=== PATIENT | female | born 1980 | race Two or more races ===

== ENCOUNTER 2019-07-12 12:23 | Emergency (ER) | payer SELFPAY ==
[~2019-07-12] VITALS: Ht 160 cm; Wt 120.2 kg
--- NOTE | 2019-07-12 12:58 | PHYS DOC ---
Text Text Patient placed in wrist splint for comfort and support. Recommend supportive care with PCP follow-up as needed. General Chief Complaint: WRIST PAIN Stated Complaint: WRIST INJURY Time Seen by MD: 12:33 Source: patient History of Present Illness Onset: last week Pain/Injury Location: left wrist Method of Injury: fell, other (outstretched hand) Modifying Factors: improves with pain medication Allergies: Coded Allergies: No Known Drug Allergies (Unverified , 07/12/19) Past Medical History Medical History: no pertinent history Surgical History: no surgical history Review of Systems Musculoskeletal: joint swelling Physical Exam General Appearance: WD/WN HEENT: PERRL/EOMI Neck: non-tender Gastrointestinal: non-tender Back: normal inspection Shoulder: normal inspection Elbow/Forearm: normal inspection Wrist: pain, soft tissue tenderness Hand: normal inspection, non-tender Neurologic/Tendon: normal sensation Psychiatric: alert, oriented x 3 Orders, Labs, Meds Left wrist x-ray: No obvious displaced fracture on preliminary ED review EDEL PALENCIA DO Jul 12, 2019 12:58
--- NOTE | 2019-07-12 13:09 | RAD ---
WRIST 3V LEFT History: Trauma. Pain. Technique: 4 views left wrist. Comparison: None. Findings: Normal alignment. No fracture. Soft tissues unremarkable. Impression: 1. No acute osseous abnormality. Electronically signed by: Carlos Ferreira DO (07/12/2019 1:06 PM) [id number]
[2019-07-12 13:11] VITALS: BP 148/79
== END 2019-07-12 13:05 | disposition home or self-care (01) ==
LOC: ER 12:23
DX: S69.92XA Unspecified injury of left wrist, hand and finger(s), initial encounter (principal); W18.39XA Other fall on same level, initial encounter; Y93.89 Activity, other specified; Y92.89 Other specified places as the place of occurrence of the external cause; Y99.8 Other external cause status
CPT/HCPCS: 29125; 73110; 99284

== ENCOUNTER 2020-07-25 14:54 | Emergency (ER) | payer SELFPAY ==
[~2020-07-25] VITALS: Ht 160 cm; Wt 127.2 kg
[2020-07-25] MEDS: DEXAMETHASONE 4 MG TABLET PO ONE (15:15)
--- NOTE | 2020-07-25 15:44 | RAD ---
EXAMINATION: CHEST AP ONLY CLINICAL HISTORY: cough, SOA, covid + EXAM DATE/TIME: 07/25/2020 3:05 PM COMPARISON: None FINDINGS: Lines, Tubes, and Devices: None. Cardiomediastinal Silhouette: Within normal limits. Lungs and Pleura: Pulmonary hypoexpansion without evidence of focal airspace consolidation or pleural effusion. Pulmonary vasculature unremarkable. Bones and Soft Tissues: No acute osseous abnormality. IMPRESSION: Pulmonary hypoexpansion without evidence of acute cardiopulmonary abnormality. Electronically signed by: Shay Alvarenga DO (07/25/2020 3:41 PM) [id number]
[2020-07-25 16:57] VITALS: BP 155/90
--- NOTE | 2020-07-25 16:57 | PHYS DOC ---
Past History Past Medical History: No Pertinent History Past Surgical History: Cholecystectomy Alcohol Use: None Drug Use: None General Adult EDM: Chief Complaint: COUGH HPI: HPI: Patient is a [age] year old [sex] who presents with [] Review of Systems: Review of Systems: Constitutional: Denies fever or chills Eyes: Denies change in visual acuity HENT: Denies nasal congestion or sore throat Respiratory: Denies cough or shortness of breath Cardiovascular: Denies chest pain or edema GI: Denies abdominal pain, nausea, vomiting, bloody stools or diarrhea : Denies dysuria Musculoskeletal: Denies back pain or joint pain Integument: Denies rash Neurologic: Denies headache, focal weakness or sensory changes Endocrine: Denies polyuria or polydipsia Lymphatic: Denies swollen glands Psychiatric: Denies depression or anxiety Heart Score: Risk Factors: Risk Factors: DM, Current or recent (<one month) smoker, HTN, HLP, family history of CAD, obesity. Risk Scores: Score 0 - 3: 2.5% MACE over next 6 weeks - Discharge Home Score 4 - 6: 20.3% MACE over next 6 weeks - Admit for Clinical Observation Score 7 - 10: 72.7% MACE over next 6 weeks - Early Invasive Strategies Current Medications: Current Meds: Current Medications Medications (Trade) Dose Ordered Sig/Veronica Start Time Stop Time Status Last Admin Dose Admin Dexamethasone (Decadron) 10 mg 1X ONCE 07/25/20 15:15 07/25/20 15:20 DC 07/25/20 15:15 10 MG Allergies: Allergies: Allergies Coded Allergies Type Severity Reaction Last Updated Verified No Known Drug Allergies 07/12/19 No Physical Exam: PE: Constitutional: Well developed, well nourished, no acute distress, non-toxic appearance. [] HENT: Normocephalic, atraumatic, bilateral external ears normal, oropharynx moist, no oral exudates, nose normal. [] Eyes: PERRLA, EOMI, conjunctiva normal, no discharge. [] Neck: Normal range of motion, no tenderness, supple, no stridor. [] Cardiovascular:Heart rate regular rhythm, no murmur [] Lungs & Thorax: Bilateral breath sounds clear to auscultation [] Abdomen: Bowel sounds normal, soft, no tenderness, no masses, no pulsatile masses. [] Skin: Warm, dry, no erythema, no rash. [] Back: No tenderness, no CVA tenderness. [] Extremities: No tenderness, no cyanosis, no clubbing, ROM intact, no edema. [] Neurologic: Alert and oriented X 3, normal motor function, normal sensory function, no focal deficits noted. [] Psychologic: Affect normal, judgement normal, mood normal. [] Current Patient Data: Vital Signs: Vital Signs Date Time Temp Pulse Resp B/P (MAP) Pulse Ox O2 Delivery O2 Flow Rate FiO2 07/25/20 15:17 98.1 77 16 159/92 (114) 97 Room Air EKG: EKG: [] Radiology/Procedures: Radiology/Procedures: PROCEDURE: CHEST AP ONLY EXAMINATION: CHEST AP ONLY CLINICAL HISTORY: cough, SOA, covid + EXAM DATE/TIME: 07/25/2020 3:05 PM COMPARISON: None FINDINGS: Lines, Tubes, and Devices: None. Cardiomediastinal Silhouette: Within normal limits. Lungs and Pleura: Pulmonary hypoexpansion without evidence of focal airspace consolidation or pleural effusion. Pulmonary vasculature unremarkable. Bones and Soft Tissues: No acute osseous abnormality. IMPRESSION: Pulmonary hypoexpansion without evidence of acute cardiopulmonary abnormality. Electronically signed by: Shay Alvarenga DO (07/25/2020 3:41 PM) [id number] Course & Med Decision Making: Course & Med Decision Making Pertinent Labs and Imaging studies reviewed. (See chart for details) [] Dragon Disclaimer: Dragon Disclaimer: This electronic medical record was generated, in whole or in part, using a voice recognition dictation system. Departure Departure: Impression: Primary Impression: COVID-19 Disposition: 01 HOME/RESIDENCE PRIOR TO ADM Condition: STABLE Referrals: PCP,NO (PCP) Patient Instructions: Incentive Spirometer, Viral Syndrome Additional Instructions: You have been tested for or diagnosed with COVID-19. It is an infection caused by a new type of coronavirus. COVID-19 will cause cold-like or mild flu symptoms in most. It can cause more severe symptoms like problems breathing in some. There is no treatment for COVID-19. The body will clear the infection over time. Self-care will help to ease discomfort. Steps to Take: Self-Care Rest as needed. Healthy habits may help you feel better. Steps include: Choose healthy foods including fruits and vegetables. Drink water throughout the day. Get plenty of sleep each night. If you smoke, try to quit. It may ease breathing. Avoid alcohol. Keep Others Healthy The virus can spread to others. Droplets are released every time you sneeze or cough. The droplets can get into the mouth, nose, or eyes of people near you and lead to infection. To lower the chances of spreading COVID-19 to others: Stay at home until your doctor has said it is safe to leave. If you tested positive this will mean staying isolated until both of the following are true: At least 7 days have passed since the start of illness. You are free of fever for at least 72 hours without the use of medicine. During this time: - Avoid public areas, events, or transportation. Do not return to work or school until your doctor has said it is safe to do so. - Call ahead if you need to go to a medical center. Let them know you may have COVID-19. It will help them guide you where to go. They may also ask you to wear a facemask when you come to the office. - If you call for emergency medical services, let them know you may have COVID- 19. While at home: - Try to avoid close contact with others. Stay about 6 feet away. - If possible, spend most of your time in a separate room from others. - Use a face mask if you will be in close contact with others such as sharing a room or vehicle. - Have someone wipe down common surfaces in the home. Use household [employer] every day on areas like doorknobs, counters, or sinks. - Cough or sneeze into a tissue. Throw the tissue away right after use. If a tissue is not available, cough or sneeze into your elbow. - Wash your hands often. Wash them after sneezing or coughing. Use soap and [place] and wash for at least 20 seconds. Alcohol based hand poultry cleaner can be used if soap and water is not available. - Do not prepare food for others. Avoid sharing personal items like forks, spoons, or toothbrushes. - Avoid close contact with pets while you are sick. There is no evidence of the virus passing to pets. This is a safety step until more is known about this virus. Isolation can be frustrating. Social interaction can help. Keep in touch with friends and family through phone and tech options. You can still interact with others in your home, just keep a safe distance of about 6 feet. Follow-up: Your doctors office will check in with you to see if there are any changes in your health. You may be asked to keep track of symptoms to share with them. They will also let you know when you are clear to be in public again. Problems to Look Out For: Contact your doctor if your recovery is not going as you expect. Get emergency care if you have problems such as: - Trouble breathing - Nonstop chest pain or pressure - Changes in awareness, confusion, or problems waking - Lips or face have bluish color - Worsening of symptoms If you think you have an emergency, call for emergency medical services right away. As taken from [facility] Justification of Admission: Justification of Admission: Justification of Admission Dx: N/A BELINDA FIGUEROA DO Jul 25, 2020 16:57
== END 2020-07-25 17:30 | disposition home or self-care (01) ==
LOC: ER 14:54
DX: U07.1 COVID-19 (principal)
CPT/HCPCS: 71045; 99283; J8540

== ENCOUNTER 2021-08-30 16:38 | Emergency (ER) | payer OTHER ==
[~2021-08-30] VITALS: Ht 160 cm; Wt 137.0 kg
--- NOTE | 2021-08-30 16:54 | PHYS DOC ---
Past History Past Medical History: No Pertinent History (NABIL BUCKLEY APRN) Past Surgical History: Cholecystectomy (NABIL BUCKLEY APRN) Smoking: Non-smoker Alcohol Use: None Drug Use: None (NABIL BUCKLEY APRN) General Adult EDM: Chief Complaint: ABDOMINAL PAIN HPI: HPI: Patient is a 41-year-old female who presents to the emergency department today for suprapubic abdominal cramping that radiates to her left flank that started 1 hour ago. Patient rates her pain 10 out of 10. She is taking ibuprofen without any relief. Patient denies nausea, vomiting, diarrhea, fevers, dysuria, hematuria, urinary frequency/urgency, lightheadedness. (NABIL BUCKLEY APRN) Review of Systems: Review of Systems: 14 body systems of the review of systems have been reviewed. See HPI for pertinent positive and negative responses, otherwise all other systems are negative, nonpertinent or noncontributory (NABIL BUCKLEY APRN) Allergies: Allergies: Allergies Coded Allergies Type Severity Reaction Last Updated Verified No Known Drug Allergies 08/30/21 No (NABIL BUCKLEY APRN) Physical Exam: PE: Constitutional: Well developed, well nourished, no acute distress, non-toxic appearance. [] HENT: Normocephalic, atraumatic, bilateral external ears normal, oropharynx moist, no oral exudates, nose normal. [] Eyes: PERRL, EOMI, conjunctiva normal, no discharge. [] Neck: Normal range of motion, no tenderness, supple, no stridor. [] Cardiovascular:Heart rate regular rhythm, no murmur [] Lungs & Thorax: Bilateral breath sounds clear to auscultation [] Abdomen: Bowel sounds normal, soft, suprapubic and right lower quadrant tenderness with palpation, no masses, no pulsatile masses. [] Skin: Warm, dry, no erythema, no rash. [] Back: No tenderness, no CVA tenderness. [] Extremities: No tenderness, no cyanosis, no clubbing, ROM intact, no edema. [] Neurologic: Alert and oriented X 3, normal motor function, normal sensory function, no focal deficits noted. [] Psychologic: Affect normal, judgement normal, mood normal. [] (NABIL BUCKLEY APRN) EKG: EKG: [] (NABIL BUCKLEY APRN) Radiology/Procedures: Radiology/Procedures: []PROCEDURE: US PELVIS W/TV EXAM: Transvaginal pelvic ultrasound INDICATION: Uterine enlargement, mass or recent CT abdomen and pelvis. COMPARISON: CT abdomen and pelvis August 30, 2021 TECHNIQUE: Transabdominal and transvaginal transducers were grayscale and duplex Doppler sonography was performed. FINDINGS: Transabdominal pelvic sonography demonstrates limited visualization of uterus and ovaries. Transvaginal imaging demonstrates mild retroflexion of the uterus, uterus measures 9.5 x 6.0 x 5.0 cm. Endometrium thickness 0.8 cm, endometrium is somewhat indistinctly defined. Along the posterior uterine wall of the fundus there is a myometrial heterogeneous echogenicity mildly shadowing mass measuring 2.4 x 2.1 x 2.5 cm. Mild hypoechoic complex mobile fluid of the cul-de-sac and at the right adnexa. The ovaries could not be visualized due to shadowing from pelvic bowel loops. IMPRESSION: 1. Posterior uterine wall 2.5 cm mass typical of a leiomyoma, which combined with mild retroflexion of the uterus, likely account for the globular enla rgement morphology of the uterus on recent CT imaging. 2. Mild hypoechoic complex fluid at the cul-de-sac and right adnexa, this could represent a small volume of viscous proteinaceous or hemorrhagic fluid. The ovaries could not be visualized. Electronically signed by: Gian Harding MD (08/30/2021 6:29 PM) [facility] DICTATED AND SIGNED BY: GIAN HARDING MD DATE: 08/30/21 182 CC: NABIL BUCKLEY APRN; PCP,NO ~MTH0 0 (NABIL BUCKLEY APRN) Heart Score: C/O Chest Pain: N/A Risk Factors: Risk Factors: DM, Current or recent (<one month) smoker, HTN, HLP, family history of CAD, obesity. Risk Scores: Score 0 - 3: 2.5% MACE over next 6 weeks - Discharge Home Score 4 - 6: 20.3% MACE over next 6 weeks - Admit for Clinical Observation Score 7 - 10: 72.7% MACE over next 6 weeks - Early Invasive Strategies (NABIL BUCKLEY APRN) Course & Med Decision Making: Course & Med Decision Making Pertinent Labs and Imaging studies reviewed. (See chart for details) [] Patient presents to the emergency department for suprapubic pain that radiates to her left flank. Work-up in the ER consisted of blood work, urinalysis, CT imaging of abdomen and pelvis. Patient treated with IV fluids, nausea and pain medication. Patient had enlargement of her uterus, ultrasound performed that showed leiomyoma Patient was noted to have hypokalemia and this was replaced in the ER. Patient advised to follow-up with OB. I discussed with patient all findings and diagnostic testing as well as the need to follow-up with PCP for further evaluation and treatment or return to the ER if any new or worsening symptoms. Strict return precautions were also discussed at length. Patient voiced understanding and agreement with the plan. Patient is hemod ynamically stable at the time of disposition. (NABIL BUCKLEY APRN) Dragon Disclaimer: Dragon Disclaimer: This electronic medical record was generated, in whole or in part, using a voice recognition dictation system. (NABIL BUCKLEY APRN) Departure Departure: Impression: Primary Impression: Hypokalemia Additional Impression: Abdominal pain Qualified Codes: R10.30 - Lower abdominal pain, unspecified Disposition: HOME / SELF CARE / HOMELESS Condition: GOOD Referrals: PCP,NO (PCP) BELINDA WEINBERG MD Patient Instructions: Pelvic Pain, Female, Uterine Fibroid, Lquo-is-Dspc Additional Instructions: You were seen in the emergency department today for abdominal pain. You were noted to have a low potassium level and this was replaced in the emergency department. At home ensure that you are eating potassium rich foods such as green leafy vegetables and bananas. You were noted to have enlargement of your uterus. The ultrasound showed a possible leiomyoma which is a growth in your uterus. You can take ibuprofen or naproxen for pain. Follow-up with your [facility] on Thursday regarding your ER visit. Return to the emergency department if you develop worsening of your abdominal pain, intractable nausea vomiting, high fevers refractory to treatment, severe vaginal bleeding. EMERGENCY DEPARTMENT GENERAL DISCHARGE INSTRUCTIONS Thank you for coming to [facility] (ED) today and trusting us with you care. We trust that you had a positivie experience in our Emergency Department. If you wish to speak to the department management, you may call the director at [phone]. YOUR FOLLOW UP INSTRUCTIONS ARE FOLLOWS: 1. Do you have a private Doctor? If you do not have a private doctor, please ask for a resource list of physicians or clinics that may be able to assist you with follow up care. 2. The Emergency Physician has interpreted your x-rays. The X-Ray specialist will also review them. If there is a change in the findings, you will be notified in 48 hours when at all possible. 3. A lab test or culture has been done, your results will be reviewed and you will be notified if you need a change in treatment. ADDITIONAL INSTRUCTIONS AND INFORMATION: 1. Your care today has been supervised by a physician who is specially trained in emergency care. Many problems require more than one evaluation for a complete diagnosis and treatment. We recommend that you schedule your follow up appointment as recommended to ensure complete treatment of you illness or injury. If you are unable to obtain follow up care and continue to have a problem, or if your condition worsens, we recommend that you return to the ED. 2. We are not able to safely determine your condition over the phone nor are we able to give sound medical advice over the phone. For these safety reasons, if you call for medical advice we will ask you to come to the ED for further evaluation. 3. If you have any questions regarding these discharge instructions please call the ED at [phone]. SAFETY INFORMATION: In the interest of safety, wellness, and injury prevention; we encourage you to wear your sealbelt, if you smoke; quite smoking, and we encourage family to use a protective helmet for bicycling and other sporting events that present an increased risk for head injury. IF YOUR SYMPTOMS WORSEN OR NEW SYMPTOMS DEVELOP, OR YOU HAVE CONCERNS ABOUT YOUR CONDITION; OR IF YOUR CONDITION WORSENS WHILE YOU ARE WAITING FOR YOUR FOLLOW UP APPOINTMENT; EITHER CONTACT YOUR PRIMARY CARE DOCTOR, THE PHYSICIAN WHOSE NAME AND NUMBER YOU WERE GIVEN, OR RETURN TO THE ED IMMEDIATELY. Attending Signature Attending Signature I have participated in the care of this patient and I have reviewed and agree with all pertinent clinical information above including history, exam, and recommendations. (TEJAS QUIROZ MD) NABIL BUCKLEY APRN Aug 30, 2021 16:54 TEJAS QUIROZ MD Sep 01, 2021 17:05
[2021-08-30] MEDS ORDERED: IV NORMAL SALINE 1,000ML 1,000 ML IV SCH (17:00)
[2021-08-30] MEDS ORDERED: ONDANSETRON PF 4 MG/2 ML VIAL. IVP ONE (17:00)
[2021-08-30] MEDS ORDERED: IOHEXOL 300 MG/ML 75 ML VIAL. IV ONE (17:00)
[2021-08-30] MEDS ORDERED: CONTRAST GIVEN. MC PRN (17:15)
[2021-08-30 17:29] LABS: BASO % 0 % (0-3); EOS # 0.2 x10^3/uL (0.0-0.7); EOS % 3 % (0-3); HEMATOCRIT 39.5 % (36.0-47.0); HEMOGLOBIN 13.3 g/dL (12.0-15.5); LYMPH # 2.2 x10^3/uL (1.0-4.8); LYMPH % 29 % (24-48); MEAN CORPUSCULAR HEMOGLOBIN 30 pg (25-35); MEAN CORPUSCULAR HGB CONC 34 g/dL (31-37); MEAN CORPUSCULAR VOLUME 90 fL (79-100); MONO # 0.2 x10^3/uL (0.0-1.1); MONO % 3 % (0-9); NEUT % 66 % (31-73); PLATELET COUNT 265 x10^3/uL (140-400); RED BLOOD COUNT 4.39 x10^6/uL (3.50-5.40); RED CELL DISTRIBUTION WIDTH 13.6 % (11.5-14.5); WHITE BLOOD COUNT 7.7 x10^3/uL (4.0-11.0)
[2021-08-30 17:35] LABS: CALCIUM 8.7 mg/dL (8.5-10.1); CREATININE 0.6 mg/dL (0.6-1.0); GFR 111.3; POTASSIUM 3.3 mmol/L (3.5-5.1)
--- NOTE | 2021-08-30 17:40 | RAD ---
CT abdomen and pelvis with contrast PQRS statement: CT scans at this facility use dose reduction including either automated exposure cont rol, iterative reconstructions, and /or weight based radiation dosing via mA and kV modification when appropriate to reduce radiation dose to as low as reasonably achievable. Contrast: 75 mL Isovue-370 intravenous contrast HISTORY: Abdominal pain. Abdomen findings: Lung bases and bones are unremarkable. Mild distention of the common bile duct like ly related to cholecystectomy. Liver, spleen, adrenal glands, kidneys and pancreas are unremarkable. Mild sigmoid colonic diverticulosis. Appendix is negative. No obstruction or inflammatory change of t he GI tract. No abdominal fluid. Pelvis findings: There is a round globular morphology and enhancement of the upper uterus which could indicate underlying mass or masses perhaps leiomyomas. Ovaries, bladder, rectum and bones are unrema rkable. Small volume of pelvic fluid cul-de-sac. No adenopathy. IMPRESSION: 1. No acute process. Appendix is negative. 2. Round globular enlargement of the uterus could indicate an underlying mass or masses perhaps leiom yomas. This could be further assessed with pelvic sonography. There is also a small volume of pelvic free fluid at the cul-de-sac. Electronically signed by: Chan Harding MD (08/30/2021 5:38 PM) [facility]
[2021-08-30 17:41] LABS: ALBUMIN 3.5 g/dL (3.4-5.0); ALBUMIN/GLOBULIN RATIO 0.7 (1.0-1.7); TOTAL BILIRUBIN 0.2 mg/dL (0.2-1.0); TOTAL PROTEIN 8.2 g/dL (6.4-8.2)
[2021-08-30 18:20] LABS: BACTERIA,URINE 0 /HPF (0-FEW); BILIRUBIN,URINE NEG (NEG); CLARITY,URINE CLEAR; COLOR,URINE YELLOW; GLUCOSE,URINE NEG (NEG); NITRITE,URINE NEG (NEG); UROBILINOGEN,URINE 0.2 mg/dL (0.2 mg/dL); WBC,URINE OCC /HPF (0-4)
--- NOTE | 2021-08-30 18:31 | RAD ---
EXAM: Transvaginal pelvic ultrasound INDICATION: Uterine enlargement, mass or recent CT abdomen and pelvis. COMPARISON: CT abdomen and pelvis August 30, 2021 TECHNIQUE: Transabdominal and transvaginal transducers were grayscale and duplex Doppler sonography w as performed. FINDINGS: Transabdominal pelvic sonography demonstrates limited visualization of uterus and ovaries. Transvaginal imaging demonstrates mild retroflexion of the uterus, uterus measures 9.5 x 6.0 x 5.0 cm . Endometrium thickness 0.8 cm, endometrium is somewhat indistinctly defined. Along the posterior [place] wall of the fundus there is a myometrial heterogeneous echogenicity mildly shadowing mass measur ing 2.4 x 2.1 x 2.5 cm. Mild hypoechoic complex mobile fluid of the cul-de-sac and at the right adnex a. The ovaries could not be visualized due to shadowing from pelvic bowel loops. IMPRESSION: 1. Posterior uterine wall 2.5 cm mass typical of a leiomyoma, which combined with mild retroflexion o f the uterus, likely account for the globular enlargement morphology of the uterus on recent CT imagi ng. 2. Mild hypoechoic complex fluid at the cul-de-sac and right adnexa, this could represent a small vol ume of viscous proteinaceous or hemorrhagic fluid. The ovaries could not be visualized. Electronically signed by: Chan Harding MD (08/30/2021 6:29 PM) [facility]
[2021-08-30] MEDS ORDERED: POTASSIUM CHLORIDE 20 MEQ TABLET.ER. PO ONE (18:45)
[2021-08-30 18:59] VITALS: BP 129/76
== END 2021-08-30 19:03 | disposition home or self-care (01) ==
LOC: ER 16:38
DX: E87.6 Hypokalemia (principal); Z90.49 Acquired absence of other specified parts of digestive tract
CPT/HCPCS: 36415; 74177; 76830; 76856; 80053; 81001; 81025; 83690; 85025; 96361; 96374; 96375; 99285; J2405; J3010; J7030; Q9967